=== PATIENT | male | born 1960 | race Caucasian/White ===

== ENCOUNTER 2017-04-09 08:30 | Emergency (ER) | payer SELFPAY ==
[2017-04-09] MEDS ORDERED: DIPH,PERTUSS(ACELL),TET VAC/PF 0.5 ML DISP.SYRIN IM ONE (08:37)
[2017-04-09] MEDS ORDERED: SODIUM BICARBONATE 2.4 MEQ VIAL INJ ONE (08:50)
[2017-04-09] MEDS ORDERED: BUPIVACAINE HCL/PF 5 MG/ML 10ML VIAL IV ONE (08:50)
[2017-04-09] MEDS ORDERED: BUPIVACAINE HCL/PF 5 MG/ML 10ML VIAL IJ ONE (08:53)
--- NOTE | 2017-04-09 09:25 | ED Physician Documentation ---
General Adult - HISTORIAN Historian: patient - HPI Stated Complaint: Finger Laceration Chief Complaint: Laceration/Recheck/Suture Onset: other (yesterday at 1200) Timing: still present Further Comments: yes (56 year old male patient presents with left thumb laceration over dorsal aspect of thumb, over 1st interphalangeal joint. Patient states he cut his thumb on a hack saw yesterday around 1200, states the cut "won't stay closed".) - ROS CONST: no problems EYES/ENT: none CVS/RESP: none GI/: none MS/SKIN/LYMPH: none NEURO/PSYCH: denies: headache - PAST HX Past History: hypertension Other History: diabetes Type 2, other (HLD) Allergies/Adverse Reactions: Allergies Allergy/AdvReac Type Severity Reaction Status Date / Time No Known Allergies Allergy Verified 04/09/17 08:40 Home Medications: Ambulatory Orders Medication Instructions Recorded Aspirin [Sriram] 81 mg PO DAILY 07/25/14 Hydrochlorothiazide 25 mg PO DAILY 07/25/14 Lisinopril 20 mg PO DAILY 07/25/14 Metformin HCl [Glucophage] 1,000 mg PO BID 07/25/14 Metoprolol Tartrate [Lopressor] 25 mg PO BID 07/25/14 Pravastatin Sodium [Pravachol] 40 mg PO DAILY 07/25/14 Mupirocin [Bactroban] 1 appl TP BID #1 tube 04/09/17 - SOCIAL HX Smoking History: cigarettes - FAMILY HX Family History: No - VITAL SIGNS Vital Signs: Vital Signs Temp Pulse Resp BP Pulse Ox 97 F L 68 16 130/68 98 04/09/17 08:30 04/09/17 09:38 04/09/17 09:38 04/09/17 09:38 04/09/17 09:38 - REVIEWED ASSESSMENTS Nursing Assessment Reviewed: Yes Vitals Reviewed: Yes Procedures Wound Location: other (left thumb - over 1st interphalangeal joint 3 cm) Wound's Depth, Shape: linear Wound Explored: clean Irrigated w/ Saline (ccs): 300 Betadine Prep?: No (chlorhexidine) Anesthesia: Other (Bupivacaine .5% - digital block) Volume of Anesthetic: 5 Wound Repaired With: sutures Suture Size/Type: 5:0 Number of Sutures: 5 Layer Closure?: No Sterile Dressing Applied?: Yes (by nursing) ED Results Lab/Radiology - Radiology Radiology Impressions: Examination: Plain film finger History: Laceration. Comparison exams: None available Findings: 3 views the 1st digit demonstrate normal cortical margins. No fracture. No dislocation. No soft tissue abnormality. No radiopaque foreign body. Impression: No acute osseous or soft tissue abnormality. - Orders Orders: ED Orders Category Date Time Status Cleanse with NS and Chlorhexid 1T Care 04/09/17 09:09 Active XRAY THUMB [FINGER 2 VIEWS OR MORE] [RAD] Stat Exams 04/09/17 Taken Bupivacaine HCl/Pf [Marcaine 0.5%] Med 04/09/17 08:53 Discontinued 5 mg IJ NOW ONE Bupivacaine HCl/Pf [Marcaine 0.5%] Med 04/09/17 08:50 Discontinued 50 mg IV .STK-MED ONE Diph,Pertuss(Acell),Tet Vac/Pf [Adacel] Med 04/09/17 08:37 Discontinued 0.5 ml IM .ONCE ONE Sodium Bicarbonate [Neut] Med 04/09/17 08:50 Discontinued 2.4 meq INJ .STK-MED ONE General Adult Physical Exam - PHYSICAL EXAM GENERAL APPEARANCE: [id number] N EENT: eye inspection normal, NICHOLAS RESPIRATORY: no resp distress, chest non-tender, breath sounds normal CVS: reg rate & rhythm, heart sounds normal, equal pulses, no murmur, no gallop , PMI nml, no JVD, no friction rub, 24 ABDOMEN: soft, no organomegaly, normal bowel sounds, no abdominal bruit, no distension SKIN: warm/dry, normal color, other (3 cm laceration over dorsal aspect of 1st interphalangeal joint) EXTREMITIES: non-tender, normal range of motion, no evidence of injury, no edema , J, [employer] NEURO: oriented X3, motor nml, sensation nml, mood/affect nml, cognition normal Discharge Clincal Impression: Laceration of left thumb Qualifiers: Encounter type: initial encounter Damage to nail status: without damage Foreign body presence: without foreign body Qualified Code(s): S61.012A - Laceration without foreign body of left thumb without damage to nail, initial encounter Prescriptions: Mupirocin [Bactroban] 1 appl TP BID #1 tube Referrals: Primary Doctor,No [Primary Care Provider] - 2 Days Additional Instructions: Keep the wound clean and dry until it has healed. You can wash or shower after 24 hours. Do not soak the wound in water and make sure it is dry afterwards (gently pat the area dry with a clean towel). Do not get into a swimming pool, hot tub, [place] or river until your stitches are removed. To remove your dressing, gently pull it off. If needed, you can dampen it with water then gently pull it off. Clean the laceration twice a day with hibiclens and rinse with water clean away any scabbed area Apply thin coat of antibiotic ointment after cleaning the wound. Cover with non-adherent bandage if able. If you have pain, take simple pain relief medication such as Tylenol or ibuprofen. If bandages or dressings get wet, they will need to be changed. Call your doctor for any signs of symptom of infection redness, drainage, pain. Have your stitches removed at your doctors office in 7-10 days. Discharged with bactroban ointment apply a thin coat twice a day. Condition: Stable Disposition: 01 HOME, SELF-CARE Decision to Admit: NO Decision Time: 09:24
[2017-04-09 09:40] VITALS: BP 130/68
--- NOTE | 2017-04-09 22:57 | Diagnostic Imaging Report ---
ROBIN PEÑA (VIRI) - [facility] [address] [facility].[address] [address] Report Submission Date: Apr 09, 2017 9:16:04 AM [facility]AMP[facility] Patient Study Name: CHADD MCINTYRE Date: Apr 09, 2017 9:02:56 AM CAMPUS [facility] Modality Type: CR Gender: M Description: UPPER EXTREMITY : 58 Institution: [facility] Physician: ROBIN PEÑA) - ER Examination: Plain film finger History: Laceration. Comparison exams: None available Findings: 3 views the 1st digit demonstrate normal cortical margins. No fracture. No dislocation. No soft tissue abnormality. No radiopaque foreign body. Impression: No acute osseous or soft tissue abnormality. Electronically signed on Apr 09, 2017 9:16:04 AM CAMPUS [facility]BASS[facility] by: Jacob GREEN
== END 2017-04-09 09:38 | disposition home or self-care (01) ==
LOC: ED 08:30
DX: S61.012A Laceration without foreign body of left thumb without damage to nail, initial encounter (principal); X58.XXXA Exposure to other specified factors, initial encounter; Y93.9 Activity, unspecified; Y99.9 Unspecified external cause status
CPT/HCPCS: 12002; 73140; 90471; 90715; 99283; J3490